=== PATIENT | male | born 1965 | race Caucasian/White ===

== ENCOUNTER → 2022-06-06 | Outpatient (CLI) | payer BC, OTHER ==
[~2022-06-06] MED LIST: CYCL10 PO; HYDACE5 PO; LISHYD1012 PO; MECL25 PO; NAPR500 PO
[2022-06-07 07:48] LABS: Stool Occult Bld Immuno 1 Positive (NEGATIVE)
== END | disposition home or self-care (01) ==
LOC: LAB SHORT 13:00 → LAB 13:00 → EDSTATUS 14:47
PROVIDERS: Physician Assistant
DX: Z12.11 Encounter for screening for malignant neoplasm of colon (principal)
CPT/HCPCS: G0328

== ENCOUNTER 2022-11-10 13:07 | Day surgery (SDC) | payer BC, OTHER ==
[2022-11-10] VITALS (16 sets, daily range): BP systolic 94–126; BP diastolic 56–81
[~2022-11-10] VITALS: Ht 177.8 cm; Wt 102.6 kg
[~2022-11-10 13:07] MED LIST changes: +HYDCHL25 PO; +LOSA50 PO; +METO100ER PO; +PRAV20 PO
--- NOTE | 2022-11-10 13:40 | NUR ---
Ambulatory in Day Surgery History, Chart, Medications and Allergies reviewed before start of procedure.Patient states colon prep results clear. Patient confirms NPO status and agrees with scheduled surgery.Pt does not have pre-arranged ride home. Pt states that he was planning on taking a taxi. Pt ambulated out to his truck to attempt to contact someone to give him a ride home. This Rn attempted to contact pt talent manager at [employer] per his request, but was unable to cha so.
--- NOTE | 2022-11-10 13:51 | NUR ---
Pt has a confirmed ride home "[facility]."
--- NOTE | 2022-11-10 15:00 | NUR ---
11/10/22 Garrett Rodgers HISTORY, CHART, MEDICATIONS AND ALLERGIES REVIEWED BEFORE START OF PROCEDURE. PATIENT CONFIRMS NPO STATUS AND AGREES WITH SCHEDULED PROCEDURE. 3-LEAD EKG REVIEWED WITH PHYSICIAN PRIOR TO START OF PROCEDURE. MONITOR INTACT WITH CONTINUOUS PULSE OXIMETRY,CAPNOGRAPHY, 3-LEAD EKG, INTERMITTENT BP. SUPPLEMENTAL O2 TO BE TITRATED THROUGHOUT PROCEDURE TO MAINTAIN O2 SATURATION ABOVE 90%. PATIENT DETERMINED TO BE ASA APPROPRIATE FOR PROPOFOL SEDATION PRIOR TO START OF PROCEDURE BY DR. GRACE.
--- NOTE | 2022-11-10 15:25 | NUR ---
REPORT RECIEVED. PT SITTING UP IN BED. DR GRACE AT BEDSIDE. VSS ON ROOM AIR
--- NOTE | 2022-11-10 15:44 | NUR ---
Patient up to Ambulate independently. Gait steady. Discharge instructions reviewed with patient. Patient verbalizes understanding. Copy given to patient to take home. [employer] OUTS PROVIDED. Discharged via wheelchair to private car for ride home.
== END 2022-11-10 15:53 | disposition home or self-care (01) ==
LOC: ORSCMMR 13:07 → ORD 14:15 → ORSCMMR 14:15
PROVIDERS: Internal Medicine Gastroenterology
PROC: 0DBM8ZX Excision of Descending Colon, Via Natural or Artificial Opening Endoscopic, Diagnostic (ICD-10-PCS; principal; 2022-11-10 14:15)
PROC: 0DBN8ZX Excision of Sigmoid Colon, Via Natural or Artificial Opening Endoscopic, Diagnostic (ICD-10-PCS; principal; 2022-11-10 14:15)
DX: Z12.11 Encounter for screening for malignant neoplasm of colon (principal); R19.5 Other fecal abnormalities; D12.5 Benign neoplasm of sigmoid colon; D12.4 Benign neoplasm of descending colon; I10 Essential (primary) hypertension; K57.30 Diverticulosis of large intestine without perforation or abscess without bleeding; K64.8 Other hemorrhoids; E78.5 Hyperlipidemia, unspecified; F17.210 Nicotine dependence, cigarettes, uncomplicated; Z79.899 Other long term (current) drug therapy
CPT/HCPCS: 88305; J2704; J7120